=== PATIENT | male | born 1990 | race Caucasian/White ===

== ENCOUNTER 2018-09-17 13:05 | Emergency (ER) | payer SELFPAY ==
[~2018-09-17] VITALS: Ht 190.5 cm; Wt 92.6 kg
--- NOTE | 2018-09-17 13:36 | PHYS DOC ---
Past History Past Medical History: No Pertinent History Past Surgical History: No Surgical History Alcohol Use: Rarely Drug Use: None Adult General Chief Complaint Chief Complaint: ABDOMINAL PAIN HPI HPI Patient is a 28 year old male here for abdominal pain. He states the pain began 1 week ago. The pain is located periumbilical with some radiation to the back. He also reports that he has been unable to have a BM since 4-5 days ago. He states that he is usually very regular and usually has multiple BM's per day. He also reports bloating and profuse vomiting x 5 day in which he has noticed some blood. He reports a poor appetite, diarrhea, and fever. He has been having some chills. He also complains of a weak urine stream that has been present for 1-2 days as well. He has had no abdominal surgeries in the past. He denies and chest pain or shortness of breath. Review of Systems Review of Systems Constitutional: Reports fever or chills [] Eyes: Denies change in visual acuity, redness, or eye pain [] HENT: Denies nasal congestion or sore throat [] Respiratory: Denies cough or shortness of breath [] Cardiovascular: No additional information not addressed in HPI [] GI: Reports abdominal pain, nausea, vomiting, bloody stools or diarrhea [] : Reports hesitancy [] Musculoskeletal: Denies back pain or joint pain [] Integument: Denies rash or skin lesions [] Neurologic: Denies headache, focal weakness or sensory changes [] Endocrine: Denies polyuria or polydipsia [] All other systems were reviewed and found to be within normal limits, except as documented in this note. Allergies Allergies Allergies Coded Allergies Type Severity Reaction Last Updated Verified No Known Drug Allergies 09/17/18 No Physical Exam Physical Exam Constitutional: Well developed, well nourished, no acute distress, non-toxic appearance. [] HENT: Normocephalic, atraumatic, bilateral external ears normal, oropharynx moist, no oral exudates, nose normal. [] Eyes: PERRLA, EOMI, conjunctiva normal, no discharge. [] Neck: Normal range of motion, no tenderness, supple, no stridor. [] Cardiovascular:Heart rate regular rhythm, no murmur [] Lungs & Thorax: Bilateral breath sounds clear to auscultation [] Abdomen: Bowel sounds normal, soft, tenderness to palpation x4 quadrants. [] Skin: Warm, dry, no erythema, no rash. [] Back: No tenderness, no CVA tenderness. [] Extremities: No tenderness, no cyanosis, no clubbing, ROM intact, no edema. [] Neurologic: Alert and oriented X 3, normal motor function, normal sensory function, no focal deficits noted. [] Psychologic: Affect normal, judgement normal, mood normal. [] Current Patient Data Vital Signs Vital Signs Date Time Temp Pulse Resp B/P (MAP) Pulse Ox O2 Delivery O2 Flow Rate FiO2 09/17/18 13:17 98.2 68 16 100 Room Air EKG EKG BP 127/80[] Radiology/Procedures Radiology/Procedures [CT of the abdomen and pelvis with contrast, 09/17/2018: HISTORY: Abdominal pain, constipation, bloating Multidetector CT imaging was performed following an IV bolus injection of iodinated contrast material. No oral contrast material was administered for this exam. No hepatic abnormality is seen. The gallbladder is unremarkable. The pancreas shows no abnormality. The spleen is of normal size. A tiny subcentimeter low-density lesion in the lateral aspect of the right kidney is too small to definitively characterize but is probably a cyst. No abdominal or pelvic adenopathy is seen. The bladder is unremarkable. The bowel loops are not dilated. The appendix is visualized and shows no abnormality. No free fluid is evident in the abdomen or pelvis. IMPRESSION: 1. Probable tiny right renal cyst. 2. No acute abdominal or pelvic abnormality is detected. PQRS Compliance Statement: One or more of the following individualized dose reduction techniques were utilized for this examination: 1. Automated exposure control 2. Adjustment of the mA and/or kV according to patient size 3. Use of iterative reconstruction technique Electronically signed by: Chandler Bertrand MD (09/17/2018 3:07 PM) [facility] DICTATED AND SIGNED BY: CHANDLER BERTRAND MD DATE: 09/17/18 [id number]] Course & Med Decision Making Course & Med Decision Making Pertinent Labs and Imaging studies reviewed. (See chart for details) 28-year-old male with abdominal pain extensive workup basically negative I suspect patient might be constipated. Trial of the below treatment in the spokes some marijuana but not regularly so cannabis I considered hyperemesis but probably doesn't smoke enough for that to be a significant issue Dragon Disclaimer Dragon Disclaimer This electronic medical record was generated, in whole or in part, using a voice recognition dictation system. Departure Departure: Impression: Primary Impression: Abdominal pain Disposition: 01 HOME, SELF-CARE Condition: STABLE Referrals: PCP,MARLIN (PCP) Scripts Ondansetron Hcl (ZOFRAN) 4 Mg Tablet 1 TAB PO Q6HRS PRN for NAUSEA/VOMITING, #20 TAB Prov: BECKY CONTEH MD 09/17/18 Lactulose (LACTULOSE) 10 Gm/15 Ml Solution 30 ML PO [id number] PRN for CONSTIPATION, #450 ML 0 Refills Prov: BECKY CONTEH MD 09/17/18 BECKY CONTEH MD September 17, 2018 13:36
[2018-09-17] MEDS: IV NORMAL SALINE 500ML 500 ML IV ONE (14:00)
[2018-09-17] MEDS: ONDANSETRON PF 4 MG/2 ML VIAL. IV ONE (14:07)
[2018-09-17 14:23] LABS: BASO # 0.1 x10^3/uL (0.0-0.2); BASO % 1 % (0-3); EOS # 0.2 x10^3/uL (0.0-0.7); EOS % 3 % (0-3); HEMATOCRIT 49.9 % (39.0-53.0); HEMOGLOBIN 16.7 g/dL (13.0-17.5); LYMPH # 1.8 x10^3/uL (1.0-4.8); LYMPH % 22 % (24-48); MEAN CORPUSCULAR HEMOGLOBIN 31 pg (25-35); MEAN CORPUSCULAR HGB CONC 34 g/dL (31-37); MEAN CORPUSCULAR VOLUME 92 fL (79-100); MONO # 0.6 x10^3/uL (0.0-1.1); MONO % 8 % (0-9); NEUT # 5.1 x10^3uL (1.8-7.7); NEUT % 66 % (31-73); PLATELET COUNT 174 x10^3/uL (140-400); RED BLOOD COUNT 5.44 x10^6/uL (4.30-5.70); WHITE BLOOD COUNT 7.9 x10^3/uL (4.0-11.0)
[2018-09-17 14:35] LABS: ALBUMIN 4.6 g/dL (3.4-5.0); ALBUMIN/GLOBULIN RATIO 1.4 (1.0-1.7); CALCIUM 10.1 mg/dL (8.5-10.1); GFR 90.3; POTASSIUM 4.7 mmol/L (3.5-5.1); TOTAL BILIRUBIN 0.4 mg/dL (0.2-1.0); TOTAL PROTEIN 7.8 g/dL (6.4-8.2)
[2018-09-17 14:41] LABS: BACTERIA,URINE 0 /HPF (0-FEW); BILIRUBIN,URINE NEG (NEG); CLARITY,URINE CLEAR; COLOR,URINE STRAW; GLUCOSE,URINE NEG (NEG); NITRITE,URINE NEG (NEG); RBC,URINE 0 /HPF (0-2); SQUAMOUS EPITHELIAL CELL,UR OCC /LPF; UROBILINOGEN,URINE 0.2 mg/dL (0.2 mg/dL); WBC,URINE RARE /HPF (0-4)
[2018-09-17] MEDS ORDERED: IOHEXOL 300 MG/ML 75 ML VIAL. IV ONE (15:00)
--- NOTE | 2018-09-17 15:10 | RAD ---
CT of the abdomen and pelvis with contrast, 09/17/2018: HISTORY: Abdominal pain, constipation, bloating Multidetector CT imaging was performed following an IV bolus injection of iodinated contrast material. No oral contrast material was administered for this exam. No hepatic abnormality is seen. The gallbladder is unremarkable. The pancreas shows no abnormality. The spleen is of normal size. A tiny subcentimeter low-density lesion in the lateral aspect of the right kidney is too small to definitively characterize but is probably a cyst. No abdominal or pelvic adenopathy is seen. The bladder is unremarkable. The bowel loops are not dilated. The appendix is visualized and shows no abnormality. No free fluid is evident in the abdomen or pelvis. IMPRESSION: 1. Probable tiny right renal cyst. 2. No acute abdominal or pelvic abnormality is detected. PQRS Compliance Statement: One or more of the following individualized dose reduction techniques were utilized for this examination: 1. Automated exposure control 2. Adjustment of the mA and/or kV according to patient size 3. Use of iterative reconstruction technique Electronically signed by: Chandler Bertrand MD (09/17/2018 3:07 PM) [facility]
[2018-09-17] MEDS ORDERED: LACT10SO PO (15:25)
[2018-09-17] MEDS ORDERED: ONDA4TAB7 PO (15:26)
[2018-09-17] MEDS: MAGNESIUM CITRATE 296 ML SOLUTION. PO ONE (15:33)
[2018-09-17 15:35] VITALS: BP 125/78
== END 2018-09-17 15:39 | disposition home or self-care (01) ==
LOC: ER 13:11
DX: R10.33 Periumbilical pain (principal); R11.2 Nausea with vomiting, unspecified; R19.7 Diarrhea, unspecified; K59.00 Constipation, unspecified
CPT/HCPCS: 36415; 74177; 80053; 81001; 83690; 85025; 96361; 96374; 99285; J2405; J7040